=== PATIENT | female | born 1940 | race Two or more races ===

== ENCOUNTER 2024-05-31 19:25 | Emergency (ER) | payer OTHER ==
[~2024-05-31] VITALS: Ht 152.4 cm; Wt 68.0 kg
[2024-05-31] MEDS ORDERED: CARVEDILOL ER40 MG (20:05)
[2024-05-31] MEDS ORDERED: DICYCLOMINE HCL 20 MG TABLET PO ONE (20:30)
[2024-05-31] MEDS ORDERED: MECLIZINE HCL 25 MG TABLET PO ONE ×2 (20:30→21:02)
[2024-05-31] MEDS ORDERED: FAMOtidine 10 MG/ML (4ML VIAL) IV ONE (20:30)
[2024-05-31] MEDS ORDERED: KETOROLAC TROMETHAMINE 30 MG VIAL IM ONE (20:30)
[2024-05-31] MEDS ORDERED: DICYCLOMINE HCL 10 MG CAPSULE PO ONE (21:02)
[2024-05-31] MEDS ORDERED: KETOROLAC TROMETHAMINE 30 MG VIAL ONE (21:02)
[2024-05-31] MEDS ORDERED: FAMOTIDINE/PF 20 MG/2 ML VIAL ONE (21:03)
[2024-05-31 21:08] LABS: HEMATOCRIT 41.1 % (36.0-45.00); HEMOGLOBIN 13.8 g/dL (12.0-15.00); MEAN CELL VOLUME 83.5 fL (80.00-100.00); MEAN CORPUSCULAR HEMOGLOBIN 28.1 pg (27.00-32.0); MEAN CORPUSCULAR HGB CONC 33.6 g/dl (32.0-36.0); PLATELET COUNT 271 K/uL (150-450); RED BLOOD COUNT 4.92 M/uL (4.00-6.00); RED CELL DISTRIBUTION WIDTH 13.9 % (11.5-14.5)
[2024-05-31 21:28] LABS: INR 1.1; PARTIAL THROMBOPLASTIN TIME 30.5 SECONDS (22.0-34.0); PROTHROMBIN TIME 11.9 SECONDS (9.0-11.5)
[2024-05-31 21:29] LABS: ALBUMIN 3.3 gm/dL (3.4-5.0); BILIRUBIN TOTAL 0.54 mg/dL (0.3-1.2); CALCIUM 8.7 mg/dL (8.5-10.1); CREATININE SERUM 0.7 mg/dL (0.55-1.02); GFR 80.11; GLOBULINA 3.8 G/DL (2.4-3.5); POTASSIUM 4.22 mEq/L (3.5-5.1); TOTAL PROTEIN 7.1 gm/dL (6.4-8.2)
[2024-05-31 22:05] LABS: PH,URINE 5.5 (5.0-8.0); URINE APPEARANCE Clear; URINE BILIRRUBIN Negative (NEGATIVE); URINE BLOOD Negative; URINE COLOR Yellow; URINE GLUCOSE Negative (NEGATIVE); URINE KETONE Negative (NEGATIVE); URINE LEUKOCYTE Trace; URINE NITRATE Negative; URINE PROTEIN Negative (NEGATIVE); URINE UROBILINOGEN 0.2 E.U./dl
[2024-05-31 22:09] LABS: URINE BACTERIA 57.5 uL (0.0-1933); URINE EPITHELIAL CELLS 4.7 uL (0.0-38.8); URINE WBC 17.1 uL (0.0-23.2)
[2024-05-31 22:13] LABS: URINE RBC 1.4 uL (0.0-20.8)
[2024-06-01] MEDS ORDERED: PEPCID AC20 MG PO (00:46)
[2024-06-01] MEDS ORDERED: MOTION SICKNESS25 M2 PO (00:46)
[2024-06-01] MEDS ORDERED: OSEL75CA PO (00:46)
== END 2024-06-01 01:06 | disposition home or self-care (01) ==
LOC: ER 19:27
PROVIDERS: General Practice
DX: J10.1 Influenza due to other identified influenza virus with other respiratory manifestations (principal); R42 Dizziness and giddiness; M54.2 Cervicalgia; Z20.822 Contact with and (suspected) exposure to COVID-19; I10 Essential (primary) hypertension; Z88.5 Allergy status to narcotic agent; Z88.6 Allergy status to analgesic agent
CPT/HCPCS: 36415; 70460; 70491; 71045; 93005; 96365; 96372; 99284; J1885; J3490; Q9965